=== PATIENT | female | born 1960 | race Caucasian/White ===

== ENCOUNTER 2018-03-20 04:44 | Emergency (ER) | payer OTHER ==
[~2018-03-20] VITALS: Ht 175.3 cm; Wt 77.1 kg
[2018-03-20 04:53] VITALS: BP 129/83
[2018-03-20] MEDS ORDERED: TETANUS-DIPTH-ACEL PERTUSSIS 0.5ML SYRG IM ONE (07:00)
== END 2018-03-20 07:04 | disposition home or self-care (01) ==
LOC: ER 04:44
DX: S91.311A Laceration without foreign body, right foot, initial encounter (principal); F17.210 Nicotine dependence, cigarettes, uncomplicated; W22.8XXA Striking against or struck by other objects, initial encounter; Y93.E1 Activity, personal bathing and showering; Y92.091 Bathroom in other non-institutional residence as the place of occurrence of the external cause; Y99.8 Other external cause status
CPT/HCPCS: 12001; 90471; 90715

== ENCOUNTER 2018-03-26 14:07 | Emergency (ER) | payer OTHER ==
[~2018-03-26] VITALS: Ht 175.3 cm; Wt 72.6 kg
[2018-03-26 14:35] VITALS: BP 104/62
== END 2018-03-26 14:59 | disposition home or self-care (01) ==
LOC: ER 14:07
DX: S91.312D Laceration without foreign body, left foot, subsequent encounter (principal); F17.210 Nicotine dependence, cigarettes, uncomplicated; Z48.01 Encounter for change or removal of surgical wound dressing; X58.XXXD Exposure to other specified factors, subsequent encounter

== ENCOUNTER 2019-03-03 00:14 | Emergency (ER) | payer OTHER ==
[~2019-03-03] VITALS: Ht 175.3 cm; Wt 64.4 kg
[2019-03-03 02:39] VITALS: BP 146/84
[2019-03-03] MEDS ORDERED: HYDROcodone-ACET 5/325MG TAB PO ONE (02:45)
[2019-03-03] MEDS ORDERED: methylPREDNISolone SOD SUCC 125 MG/2 ML VL IM ONE (02:45)
== END 2019-03-03 03:20 | disposition home or self-care (01) ==
LOC: ER 00:17
DX: S90.122A Contusion of left lesser toe(s) without damage to nail, initial encounter (principal); F17.210 Nicotine dependence, cigarettes, uncomplicated; X58.XXXA Exposure to other specified factors, initial encounter; Y93.89 Activity, other specified; Y92.89 Other specified places as the place of occurrence of the external cause; Y99.8 Other external cause status
CPT/HCPCS: 73630; 96372; 99283; J2930

== ENCOUNTER 2019-12-24 00:18 | Emergency (ER) | payer OTHER ==
[~2019-12-24] VITALS: Ht 175.3 cm; Wt 64.4 kg
[2019-12-24 00:35] VITALS: BP 139/72
[2019-12-24] MEDS ORDERED: IBUPROFEN 600 MG TAB PO ONE (05:15)
== END 2019-12-24 06:30 | disposition home or self-care (01) ==
LOC: ER 00:19
DX: S93.601A Unspecified sprain of right foot, initial encounter (principal); X58.XXXA Exposure to other specified factors, initial encounter; Y93.89 Activity, other specified; Y92.89 Other specified places as the place of occurrence of the external cause; Y99.8 Other external cause status
CPT/HCPCS: 73610; 73630